=== PATIENT | female | born 1975 | race Caucasian/White ===

== ENCOUNTER 2019-06-10 08:44 | Emergency (ER) | payer BC ==
[~2019-06-10] VITALS: Ht 170.2 cm; Wt 81.7 kg
[~2019-06-10 08:44] MED LIST: BACTRIM DS TAB1 EACH PO; CORTISPORIN OTI10 M2 OT; NORCO 5-325 TA1 EACH PO; PERCOCET 5-3251 EACH PO; VALTREX1000 MG PO; ZPAK PO
[2019-06-10 09:20] LABS: ABSOLUTE NEUTROPHILS 2.8 thou/uL (1.4-8.2); BASOPHILS 0.8 % (0.0-2.0); EOSINOPHILS 3.8 % (0.0-3.0); HEMATOCRIT 40.9 % (37.0-47.0); HEMOGLOBIN 13.5 gm/dL (12.0-15.0); LYMPHOCYTES 29.9 % (24.0-44.0); MCH 28.4 pg (26.0-34.0); MCHC 33.1 g/dL (28.0-37.0); MCV 85.9 fL (80.0-100.0); MONOCYTES 9.5 % (1.0-8.0); PLATELET COUNT 198 thou/uL (150-400); RBC 4.76 mil/uL (4.20-5.00); RDW 13.4 % (10.5-14.5)
[2019-06-10 09:23] LABS: CALCIUM 9.2 mg/dL (8.5-10.1); CREATININE 0.9 mg/dL (0.6-1.0); POTASSIUM 4.1 mmol/L (3.5-5.1)
[2019-06-10 09:48] LABS: SALICYLATE < 2.8 mg/dL (2.8-20.0)
[2019-06-10 10:43] LABS: URINE BILIRUBIN NEGATIVE (Negative); URINE BLOOD NEGATIVE (Negative); URINE CLARITY CLEAR; URINE COLOR YELLOW; URINE GLUCOSE-RANDOM* NEGATIVE (Negative); URINE KETONES NEGATIVE (Negative); URINE LEUKOCYTES-REFLEX NEGATIVE (Negative); URINE NITRITE-REFLEX NEGATIVE (Negative); URINE PROTEIN (DIPSTICK) NEGATIVE (Negative); URINE UROBILINOGEN 0.2 E.U./dl (0.2-1.0)
[2019-06-10 10:56] LABS: AMP/METHAMP Negative (Negative); BARBITURATES Negative (Negative); BENZODIAZEPINES Negative (Negative); COCAINE Negative (Negative); METHADONE Negative (Negative); OPIATES Negative (Negative); PCP Negative (Negative)
[2019-06-10] MEDS ORDERED: CELEXA40 MG PO (12:03)
[2019-06-10] MEDS ORDERED: SEROQUEL 25 MG25 M1 PO (12:03)
[2019-06-10] MEDS ORDERED: ERGOCALCIF50000 UNIT PO (12:03)
[2019-06-10 13:50] VITALS: BP 113/75
== END 2019-06-10 14:15 ==
LOC: ER 08:44
PROVIDERS: Emergency Medicine
DX: R45.851 Suicidal ideations (principal); F12.10 Cannabis abuse, uncomplicated; Z88.1 Allergy status to other antibiotic agents; Z79.899 Other long term (current) drug therapy